=== PATIENT | male | born 1975 | race Caucasian/White ===

== ENCOUNTER 2021-01-20 08:43 | Day surgery (SDC) | payer OTHER | END 2021-01-20 21:00 | disposition home or self-care (01) | LOC: CIR.AMB 08:43 | PROVIDERS: ATTEND Colon & Rectal Surgery | DX: K60.1 Chronic anal fissure (principal); Z20.822 Contact with and (suspected) exposure to COVID-19 ==

== ENCOUNTER 2022-08-03 06:51 | Day surgery (SDC) | payer OTHER | END 2022-08-03 17:00 | disposition home or self-care (01) | LOC: CIR.AMB 06:51 | PROVIDERS: ATTEND Colon & Rectal Surgery | DX: K60.3 Anal fistula (principal); Z20.822 Contact with and (suspected) exposure to COVID-19; F17.210 Nicotine dependence, cigarettes, uncomplicated ==